=== PATIENT | male | born 1955 | race Caucasian/White ===

== ENCOUNTER → 2016-11-21 | Outpatient (CLI) | payer OTHER ==
--- NOTE | 2016-11-21 10:17 | REP ---
LEFT SHOULDER, THREE VIEWS: HISTORY: Contusion. There is no acute fracture or dislocation. There is narrowing of the acromioclavicular joint with associated osteophyte formation. Calcification is present superior to the joint. This represents ligamentous or tendon calcification. IMPRESSION: Degenerative change as described above. Signed by Anselmo Loo MD 11/21/2016 10:47 A
== END ==
LOC: M ADAMS 09:27
PROVIDERS: ATTEND Physician Assistant
DX: S40.012A Contusion of left shoulder, initial encounter (principal); M25.512 Pain in left shoulder; X58.XXXA Exposure to other specified factors, initial encounter; Y92.9 Unspecified place or not applicable; Y93.9 Activity, unspecified; Y99.9 Unspecified external cause status